=== PATIENT | female | born 1950 | race Two or more races ===

== ENCOUNTER 2021-09-21 07:17 | Outpatient (CLI) | payer OTHER ==
[~2021-09-21 07:17] MED LIST: GEMFIBROZIL600 MG PO; METFORMIN HCL500 MG PO; VYTORIN 10-40 M1 TAB PO
== END 2021-09-21 07:18 | disposition home or self-care (01) ==
LOC: NUCLEAR 07:17
PROVIDERS: ATTEND Specialist
DX: I11.9 Hypertensive heart disease without heart failure (principal); I20.9 Angina pectoris, unspecified; I73.9 Peripheral vascular disease, unspecified; I25.9 Chronic ischemic heart disease, unspecified; Z88.5 Allergy status to narcotic agent
CPT/HCPCS: 78452; 93017; A9500; J0153